=== PATIENT | female | born 1960 | race Caucasian/White ===

== ENCOUNTER 2019-03-20 18:53 | Emergency (ER) | payer OTHER ==
[~2019-03-20] VITALS: Ht 152.4 cm; Wt 56.2 kg
[2019-03-20 19:50] VITALS: Ht 152.4 cm; Wt 56.2 kg
[2019-03-20 21:35] LABS: BASOPHIL % 0.7 % (0-2); RED CELL DISTRIBUTION WIDTH 14.1 % (11.5-14.5)
[2019-03-20 21:36] LABS: PLATELET COUNT 446 x10^3mcL (130-400)
[2019-03-20 21:46] LABS: UA SPECIFIC GRAVITY <=1.005 (1.005-1.035); microscopic required? YES; urine erythrocyte NEGATIVE (NEGATIVE)
[2019-03-20 22:29] LABS: ALKALINE PHOSPHATASE 147 U/L (46-116); ALT/SGPT 21 U/L (14-59); BILIRUBIN TOTAL 0.7 mg/dL (0.20-1.00); CALCIUM 8.6 mg/dL (8.5-10.1); CARBON DIOXIDE 22.7 mmol/L (21-32); CHLORIDE SERUM 106 mmol/L (98-107); CREATININE SERUM 0.8 mg/dL (0.6-1.0); GFR1 > 60 mL/min; GLUCOSE SERUM 89 mg/dL (74-106); LIPASE 79 IU/L (73-393); POTASSIUM SERUM 3.3 mmol/L (3.5-5.1); SODIUM SERUM 140 mmol/L (136-145)
[2019-03-20 22:30] LABS: ALBUMIN 3.3 g/dL (3.4-5.0)
[2019-03-20 22:39] LABS: AST/SGOT 15 U/L (15-37)
[2019-03-21 00:33] VITALS: BP 143/69
== END 2019-03-21 00:33 | disposition home or self-care (01) ==
LOC: ED 18:53
PROVIDERS: Emergency Medicine
DX: N39.0 Urinary tract infection, site not specified (principal); Z98.890 Other specified postprocedural states; Z90.49 Acquired absence of other specified parts of digestive tract
CPT/HCPCS: 36415; J2270; Q0162

== ENCOUNTER 2019-03-22 22:53 | Emergency (ER) | payer OTHER ==
[~2019-03-22] VITALS: Ht 152.4 cm; Wt 55.8 kg
[2019-03-22 23:05] VITALS: Ht 152.4 cm; Wt 55.8 kg
[2019-03-23 00:47] LABS: BASOPHIL % 0.4 % (0-2)
[2019-03-23 00:52] LABS: PLATELET COUNT 407 x10^3mcL (130-400)
[2019-03-23 00:54] LABS: CALCIUM 8.9 mg/dL (8.5-10.1); CARBON DIOXIDE 24.4 mmol/L (21-32); CHLORIDE SERUM 108 mmol/L (98-107); CREATININE SERUM 0.8 mg/dL (0.6-1.0); GFR1 > 60 mL/min; GLUCOSE SERUM 99 mg/dL (74-106); SODIUM SERUM 140 mmol/L (136-145)
[2019-03-23 00:59] LABS: ALBUMIN 3.4 g/dL (3.4-5.0); ALKALINE PHOSPHATASE 147 U/L (46-116); ALT/SGPT 33 U/L (14-59); AST/SGOT 26 U/L (15-37); BILIRUBIN TOTAL 0.7 mg/dL (0.20-1.00)
[2019-03-23 04:34] VITALS: BP 135/93
== END 2019-03-23 04:34 | disposition home or self-care (01) ==
LOC: ED 22:53
PROVIDERS: Emergency Medicine
DX: N20.0 Calculus of kidney (principal); K29.70 Gastritis, unspecified, without bleeding; N39.0 Urinary tract infection, site not specified
CPT/HCPCS: 36415; J1885